=== PATIENT | female | born 1995 | race Hispanic/Latino ===

== ENCOUNTER 2019-09-28 09:00 | Inpatient (IN) | payer SELFPAY ==
[2019-09-28] MEDS: Lactated Ringer's 1,000 ML IV SCH ×2 (09:05→13:15)
[2019-09-28] MEDS ORDERED: Ibuprofen 800 MG TAB PO PRN (09:09)
[2019-09-28] MEDS ORDERED: Butorphanol Tartrate 1 MG/ML VIAL SLOW IVP PRN (09:09)
[2019-09-28] MEDS ORDERED: Diphenoxylate HCl/Atropine Tablet PO PRN ×2 (09:09)
[2019-09-28] MEDS ORDERED: hydrALAZINE 20 MG/ML VIAL SLOW IVP PRN ×2 (09:09→20:02)
[2019-09-28] MEDS ORDERED: Acetaminophen 500 MG TAB PO PRN (09:09)
[2019-09-28] MEDS ORDERED: Carboprost 250 MCG/ML AMP IM PRN (09:09)
[2019-09-28] MEDS ORDERED: Lidocaine 1% (PF) 30 ML VIAL SC PRN (09:09)
[2019-09-28] MEDS ORDERED: Misoprostol 200 MCG TAB PR PRN (09:09)
[2019-09-28] MEDS ORDERED: Ondansetron PF 4 MG/2 ML Vial IVP PRN ×2 (09:09→20:02)
[2019-09-28] MEDS ORDERED: NS / Oxytocin 40 units/1000ml 1,000 ML IV PRN (09:09)
[2019-09-28] MEDS ORDERED: HYDROcodone/Acetaminophen 5/325 mg Tablet PO PRN ×4 (09:09→20:02)
[2019-09-28] MEDS ORDERED: Promethazine HCl 25 MG/ML VIAL IM PRN (09:09)
[2019-09-28] MEDS ORDERED: Methylergonovine 0.2 MG/ML VIAL IM PRN (09:09)
[2019-09-28 09:26] VITALS: BMI 37.0
[2019-09-28 09:38] LABS: Hemoglobin 10.7 g/dL (12.0-16.0); Mean Corpuscular HGB CONC 31.7 g/dL (32.0-36.0); Mean Corpuscular Hemoglobin 26.3 pg (27.0-31.0); Mean Corpuscular Volume 82.9 fL (78.0-98.0); Mean Platelet Volume 8.4 fL (7.4-10.4); Platelet Count 227 thou/uL (130-400); RBC Distribution Width 13.3 % (11.5-14.5); Red Blood Cell (RBC) Count 4.06 mill/uL (4.20-5.40); White Blood Cell (WBC) Count 12.7 thou/uL (4.8-10.8)
[2019-09-28 10:15] LABS: Syphilis Antibody Nonreactive (Nonreactive); Syphilis Antibody Index 0.03 S/CO (<1.00 Non-Reactive)
[2019-09-28 10:17] LABS: HBSAg Index 0.17 S/CO (0-0.99); Hep B Surf Ag Non-Reactive S/CO (NonReactive)
[2019-09-28] MEDS ORDERED: NS w/ Oxytocin 10 units 500 ML ONE (15:25)
[2019-09-28] MEDS ORDERED: Milk Of Magnesia 30 ML UDCUP PO PRN (20:02)
[2019-09-28] MEDS ORDERED: Bisacodyl 10 MG SUPP PR PRN (20:02)
[2019-09-28] MEDS ORDERED: Benzocaine-Menthol 82.5 ML CAN TOP PRN (20:02)
[2019-09-28] MEDS ORDERED: Lanolin Ointment 7 GM TUBE TOP PRN (20:02)
[2019-09-28] MEDS ORDERED: NS / Oxytocin 40 units/1000ml 1,000 ML IV SCH (20:02)
[2019-09-28] MEDS: Docusate Calcium (SURFAK) 240 MG CAP PO SCH (22:59)
[2019-09-29] MEDS: Ibuprofen 800 MG TAB PO SCH ×3 (01:31→14:46)
[2019-09-29 05:56] LABS: Hemoglobin 9.8 g/dL (12.0-16.0); Mean Corpuscular HGB CONC 31.8 g/dL (32.0-36.0); Mean Corpuscular Hemoglobin 26.7 pg (27.0-31.0); Mean Platelet Volume 8.8 fL (7.4-10.4); Platelet Count 225 thou/uL (130-400); RBC Distribution Width 13.1 % (11.5-14.5); Red Blood Cell (RBC) Count 3.65 mill/uL (4.20-5.40); White Blood Cell (WBC) Count 14.8 thou/uL (4.8-10.8)
[2019-09-29] MEDS: Ferrous Sulfate 325 MG TAB PO SCH ×2 (08:44→17:31)
[2019-09-29] MEDS: Docusate Calcium (SURFAK) 240 MG CAP PO SCH (08:44)
[2019-09-29] MEDS ORDERED: Prenatal Vitamin 1 TAB PO SCH (09:00)
[2019-09-29] MEDS ORDERED: Adacel (T-DAP) 0.5 ML SYRINGE IM ONE (09:00)
[2019-09-29 13:25] VITALS: BP 114/68; TEMP 98.6
== END 2019-09-29 19:52 | disposition home or self-care (01) | DRG 807 ==
LOC: L&D/OP 09:00 → L&D 13:01 → 3SW 20:35
PROVIDERS: ADMIT Family Medicine; ATTEND Family Medicine
PROC: 10E0XZZ Delivery of Products of Conception, External Approach (ICD-10-PCS; principal; 2019-09-28)
PROC: 0KQM0ZZ Repair Perineum Muscle, Open Approach (ICD-10-PCS; 2019-09-28)
PROC: 10907ZC Drainage of Amniotic Fluid, Therapeutic from Products of Conception, Via Natural or Artificial Opening (ICD-10-PCS; 2019-09-28)
DX: O70.1 Second degree perineal laceration during delivery (principal); Z37.0 Single live birth; Z3A.39 39 weeks gestation of pregnancy
CPT/HCPCS: 36415; 85027; 86780; 86850; 86900; 86901; 87340; 99285; J2405; J2590